=== PATIENT | male | born 1975 | race African-American/Black ===

== ENCOUNTER 2017-12-30 07:24 | Emergency (ER) | payer SELFPAY ==
[2017-12-30] MEDS: fentaNYL PF VIAL 100 MCG/2 ML VIAL IV ×2 (07:59)
[2017-12-30] MEDS: ONDANSETRON PF 4 MG/2 ML VIAL. IV ×2 (07:59)
[2017-12-30] MEDS: DICYCLOMINE HCL 10 MG CAPSULE PO ×2 (07:59)
[2017-12-30] MEDS ORDERED: CONTRAST GIVEN MC ×2 (08:00)
[2017-12-30 08:02] LABS: ADD MAN DIFF? NO
[2017-12-30] MEDS: IV NORMAL SALINE 1000ML BAG 1,000 ML IV ×2 (08:03)
[2017-12-30 08:07] LABS: BASO # 0.1 x10^3/uL (0.0-0.2); BASO % 1 % (0-3); EOS % 0 % (0-3); HEMATOCRIT 42.6 % (39.0-53.0); HEMOGLOBIN 14.4 g/dL (13.0-17.5); LYMPH # 1.5 x10^3/uL (1.0-4.8); LYMPH % 19 % (24-48); MEAN CORPUSCULAR HEMOGLOBIN 28 pg (25-35); MEAN CORPUSCULAR HGB CONC 34 g/dL (31-37); MEAN CORPUSCULAR VOLUME 84 fL (79-100); MONO # 0.4 x10^3/uL (0.0-1.1); MONO % 5 % (0-9); NEUT % 75 % (31-73); PLATELET COUNT 220 x10^3/uL (140-400); RED BLOOD COUNT 5.07 x10^6/uL (4.30-5.70); RED CELL DISTRIBUTION WIDTH 14.3 % (11.5-14.5)
[2017-12-30 08:14] LABS: ANION GAP 7 (6-14); BLOOD UREA NITROGEN 13 mg/dL (8-26); BUN/CREATININE RATIO 13 (6-20); CALCIUM 9.8 mg/dL (8.5-10.1); CARBON DIOXIDE 27 mmol/L (21-32); CHLORIDE 103 mmol/L (98-107); GFR 82.3; GLUCOSE 194 mg/dL (70-99); POTASSIUM 4.3 mmol/L (3.5-5.1); SODIUM 137 mmol/L (136-145)
[2017-12-30 08:16] LABS: ETHANOL < 10 mg/dL (0-10)
[2017-12-30 08:21] LABS: ALBUMIN 3.8 g/dL (3.4-5.0); ALBUMIN/GLOBULIN RATIO 0.9 (1.0-1.7); ALK PHOS 74 U/L (46-116); ALT (SGPT) 34 U/L (16-63); AST (SGOT) 17 U/L (15-37); LIPASE 77 U/L (73-393); TOTAL BILIRUBIN 0.2 mg/dL (0.2-1.0); TOTAL PROTEIN 8.1 g/dL (6.4-8.2)
[2017-12-30] MEDS: IOHEXOL 300 MG/ML 100ML VIAL. IV ×2 (08:24)
[2017-12-30 08:39] LABS: INFLUENZA A PATIENT NEGATIVE (NEGATIVE); INFLUENZA B PATIENT NEGATIVE (NEGATIVE); OBC FLU VALID
[2017-12-30 08:51] LABS: BILIRUBIN,URINE NEGATIVE (NEG); CLARITY,URINE CLEAR; COLOR,URINE YELLOW; GLUCOSE,URINE NEGATIVE (NEG); NITRITE,URINE NEGATIVE (NEG); PH,URINE 8.5; PROTEIN,URINE NEGATIVE (NEG-TRACE); UROBILINOGEN,URINE 0.2 mg/dL (0.2 mg/dL)
[2017-12-30 08:57] LABS: AMPHETAMINE/METHAMPHETAMINE NEG (NEG); BARBITURATES NEG (NEG); BENZODIAZEPINES NEG (NEG); CANNABINOIDS POS (NEG); COCAINE NEG (NEG); ETHANOL, URINE NEG (NEG); METHADONE NEG (NEG); OPIATES NEG (NEG); PHENCYCLIDINE POS (NEG)
[2017-12-30 08:58] LABS: BACTERIA,URINE 0 /HPF (0-FEW); RBC,URINE 0 /HPF (0-2); SQUAMOUS EPITHELIAL CELL,UR OCC /LPF; WBC,URINE 0 /HPF (0-4)
[2017-12-30] MEDS: AZITHROMYCIN 250 MG TABLET. PO ×2 (09:21)
[2017-12-30] MEDS: metroNIDAZOLE 500 MG TABLET PO ×2 (09:22)
== END 2017-12-30 09:45 | disposition home or self-care (01) ==
LOC: ER 07:24
DX: K52.9 Noninfective gastroenteritis and colitis, unspecified (principal); Z20.2 Contact with and (suspected) exposure to infections with a predominantly sexual mode of transmission
CPT/HCPCS: 36415; 74177; 80053; 80307; 81001; 83690; 85025; 87491; 87591; 87804; 87804-59; 93005; 96361; 96365; 96375; 99285-25; G0480; J0690; J2405; J3010; J7030; Q0144; Q9967

== ENCOUNTER 2018-01-30 11:56 | Emergency (ER) | payer SELFPAY ==
[2018-01-30 13:56] LABS: BILIRUBIN,URINE NEGATIVE (NEG); CLARITY,URINE CLEAR; COLOR,URINE YELLOW; GLUCOSE,URINE NEGATIVE (NEG); NITRITE,URINE NEGATIVE (NEG); PROTEIN,URINE NEGATIVE (NEG-TRACE); UROBILINOGEN,URINE 0.2 mg/dL (0.2 mg/dL)
[2018-01-30 14:06] LABS: BACTERIA,URINE 0 /HPF (0-FEW); RBC,URINE 0 /HPF (0-2); WBC,URINE OCC /HPF (0-4)
[2018-01-30 14:07] LABS: SQUAMOUS EPITHELIAL CELL,UR FEW /LPF
[2018-01-30] MEDS: cefTRIAXone IM 250 MG VIAL IM (14:14)
[2018-01-30] MEDS: AZITHROMYCIN 250 MG TABLET. PO (14:14)
== END 2018-01-30 14:53 | disposition home or self-care (01) ==
LOC: ER 11:56
DX: Z20.2 Contact with and (suspected) exposure to infections with a predominantly sexual mode of transmission (principal); R36.9 Urethral discharge, unspecified
CPT/HCPCS: 81001; 87086; 87491; 87591; 99285-25; J0696; Q0144